=== PATIENT | female | born 1960 | race Caucasian/White ===

== ENCOUNTER → 2016-11-24 | Outpatient (CLI) | payer BC ==
[2016-11-24 10:09] LABS: Hemoglobin A1C 6.6 % (4.2-6.1)
== END | disposition home or self-care (01) ==
LOC: LABWHC1 07:07
PROVIDERS: ATTEND Family Medicine
DX: E11.9 Type 2 diabetes mellitus without complications (principal)
CPT/HCPCS: 36415; 83036

== ENCOUNTER 2016-12-14 22:39 | Emergency (ER) | payer BC ==
[2016-12-14 23:06] VITALS: BP 208/108; PULSE 98; RESP 20; TEMP 98.2
[2016-12-14] MEDS ORDERED: diphenhydrAMINE 50 MG CAP PO STA (23:15)
[2016-12-14] MEDS ORDERED: FAMOTIDINE 20 MG TAB PO STA (23:15)
--- NOTE | 2016-12-14 23:21 | ED ---
Allergic Reaction HPI - General Chief complaint: Allergic Reaction Stated complaint: Rash Time Seen by Provider: 12/14/16 23:10 Source: patient, RN notes reviewed Mode of arrival: ambulatory Limitations: no limitations - History of Present Illness Initial Comments: This is a 56-year-old female with a benign history who just finished Bactrim about 3 days ago for urinary tract infection started developing hives today. She had itching on her legs she had her hands now on her neck and she knows her lips are swollen. No new other thing that she can think of that she was in contact with was a hair product that she started using about a week ago. She denies any difficulty swallowing fevers chills nausea vomiting sweats or shortness of breath. MD Complaint: allergic reaction, hives - Related Data Home Medications Medication Instructions Recorded Confirmed metFORMIN HCL [Glucophage] 500 mg PO TID 05/17/16 12/14/16 Previous Rx's Medication Instructions Recorded Famotidine [Pepcid] 20 mg PO BID #14 tablet 12/14/16 predniSONE 20 mg PO BID #10 tab 12/14/16 Allergies Allergy/AdvReac Type Severity Reaction Status Date / Time No Known Allergies Allergy Verified 12/14/16 23:06 Review of Systems ROS Statement: Those systems with pertinent positive or pertinent negative responses have been documented in the HPI. ROS Other: All systems not noted in ROS Statement are negative. Past Medical History Past Medical History: Diabetes Mellitus Additional Past Medical History / Comment(s): Diabetes Type 2 diagnosed 11 years History of Any Multi-Drug Resistant Organisms: None Reported Past Surgical History: Section, Hysterectomy Past Anesthesia/Blood Transfusion Reactions: No Reported Reaction Past Psychological History: No Psychological Hx Reported Smoking Status: Never smoker Past Alcohol Use History: Occasional Additional Past Alcohol Use History / Comment(s): wine Past Drug Use History: None Reported General Exam - General Exam Comments Initial Comments: This is a well-developed well-nourished awake alert oriented x 3 female Limitations: no limitations General appearance: alert, in no apparent distress Head exam: Present: atraumatic, normocephalic, normal inspection Eye exam: Present: normal appearance, PERRL, EOMI. Absent: scleral icterus, conjunctival injection, periorbital swelling ENT exam: Present: other (Her upper lip is somewhat swollen with erythema as well as the perioral region. Is also some erythema seen on the side of the neck on the right.) Neck exam: Present: full ROM, other (No stridor JVD or bruits). Absent: tenderness Respiratory exam: Present: normal lung sounds bilaterally. Absent: respiratory distress, wheezes, rales, rhonchi, stridor Cardiovascular Exam: Present: regular rate, normal rhythm, normal heart sounds. Absent: systolic murmur, diastolic murmur, rubs, gallop, clicks Neurological exam: Present: alert, oriented X3, CN II-XII intact Psychiatric exam: Present: normal affect, normal mood Skin exam: Present: warm, dry, erythema, urticaria (To the extremities and face as well as neck) Course Vital Signs 12/14/16 23:03 Temperature 98.2 F Pulse Rate 98 Respiratory 20 Rate Blood Pressure 208/108 O2 Sat by Pulse 98 Oximetry Medical Decision Making - Medical Decision Making Patient is a diabetic and has noticed that her blood sugar was slightly elevated she will be sent home with a prescription for prednisone to use in case the H1 and H2 blockers did not help. He'll be placed on oral medication. Disposition Clinical Impression: Allergic reaction Disposition: HOME SELF-CARE Condition: Good Instructions: Allergies (ED) Prescriptions: Famotidine [Pepcid] 20 mg PO BID #14 tablet predniSONE 20 mg PO BID #10 tab
== END 2016-12-14 23:30 | disposition home or self-care (01) ==
LOC: EC 22:39
DX: T37.0X5A Adverse effect of sulfonamides, initial encounter (principal); E11.65 Type 2 diabetes mellitus with hyperglycemia; Z79.84 Long term (current) use of oral hypoglycemic drugs
CPT/HCPCS: 99282

== ENCOUNTER → 2018-02-15 | Outpatient (CLI) | payer BC ==
--- NOTE | 2018-02-15 11:30 | BD ---
EXAMINATION TYPE: Axial Bone Density DATE OF EXAM: 02/15/2018 COMPARISON: DEXA bone scan April 13, 2015 CLINICAL HISTORY: Disorder of bone per order. Height: 61 Weight: 141.6 FRAX RISK QUESTIONS: Alcohol (3 or more units per day): no Family History (Parent hip fracture): no Glucocorticoids (More than 3mos): no (Ex: prednisone, prednisolone, methylprednisolone, dexamethasone, and hydrocortisone). History of Fracture in Adulthood: no Secondary Osteoporosis: 1. Type 1 Diabetes: no 2. Hyperthyroidism: no 3. Menopause before 45: yes 4. Malnutrition: no 5. Chronic liver disease: no Rheumatoid Arthritis: no Current Tobacco Use: no RISK FACTORS HISTORY OF: Active: yes Diet low in dairy products/other sources of calcium: no Postmenopausal woman: hysterectomy age 32 Lost more than 2 inches in height since high school: no Frequent falls: no Poor Health: no MEDICATIONS: metformin Additional History: EXAM MEASUREMENTS: Bone mineral densitometry was performed using the [employer] System. Bone mineral density as measured about the Lumbar spine is: ----- L1-L4(G/cm2): 1.171 T Score Values are as follows: ----- L2: -0.6 ----- L3: 0.0 ----- L4: 0.2 ----- L1-L4: -0.1 Bone mineral density has: increased 3.0 % since study of: 04.13.2015 Bone mineral density about the R hip (g/cm2): 0.910 Bone mineral density about the L hip (g/cm2): 0.942 T Score values are as follows: -----R Neck: -0.9 -----L Neck: -0.7 -----R Total: 0.1 -----L Total: 0.0 Bone mineral density has: decreased -3.2 % since study of: 04.13.2015 IMPRESSION: Normal (Values between +1 and -1 indicate normal bone mass). Consider repeating this study in 5 year s or sooner if there is some new clinical indication. NOTE: T-SCORE=SD OF THE YOUNG ADULT MEAN.
--- NOTE | 2018-02-16 13:39 | MM ---
Reason for exam: screening (asymptomatic). Last mammogram was performed 2 years ago. History: Patient is postmenopausal. Benign US breast aspiration single RT of the right breast, May 22, 2015. Took estrogen for 15 years 7 months beginning at age 32. Physical Findings: A clinical breast exam by your physician is recommended on an annual basis and results should be correlated with mammographic findings. MG 3D Screening Mammo W/Cad Bilateral CC and MLO view(s) were taken. Prior study comparison: February 04, 2016, right breast MG 3d diag mammo w/cad RT. May 22, 2015, right breast MG diagnostic mammo RT wo CAD. There are scattered fibroglandular densities. Finding: There is a new group of lower inner quadrant calcifications in the left breast with associated asymmetry on MLO at middle depth. No suspicious abnormality on the right breast. Right biopsy marker noted. ASSESSMENT: Incomplete: need additional imaging evaluation, BI-RAD 0 RECOMMENDATION: Special view mammogram of the left breast. [facility] will attempt to contact patient to return for supplemental views.
== END | disposition home or self-care (01) ==
LOC: RADMAMWWP 07:40
PROVIDERS: ATTEND Obstetrics & Gynecology
DX: Z12.31 Encounter for screening mammogram for malignant neoplasm of breast (principal); M85.80 Other specified disorders of bone density and structure, unspecified site
CPT/HCPCS: 77063; 77067; 77080

== ENCOUNTER → 2018-02-21 | Outpatient (CLI) | payer BC ==
--- NOTE | 2018-02-21 11:25 | MM ---
Reason for exam: additional evaluation requested from abnormal screening. Last mammogram was performed less than 1 month ago. History: Patient is postmenopausal. Benign US breast aspiration single RT of the right breast, May 22, 2015. Took estrogen for 15 years 7 months beginning at age 32. Physical Findings: Nurse did not find any significant physical abnormalities on exam. MG 3D Work Up W/Cad LT CC with magnification, LM with magnification, and LM view(s) were taken of the left breast. Prior study comparison: February 15, 2018, bilateral MG 3d screening mammo w/cad. February 04, 2016, right breast MG 3d diag mammo w/cad RT. There are scattered fibroglandular densities. Loosely grouped round and punctate calcifications central 9 o'clock left breast are slightly increased. Short interval follow up recommended. These results were verbally communicated with the patient and result sheet given to the patient on 02/21/18. ASSESSMENT: Probably benign, BI-RAD 3 RECOMMENDATION: Follow-up diagnostic mammogram of the left breast in 6 months.
== END | disposition home or self-care (01) ==
LOC: RADMAMWWP 09:38
PROVIDERS: ATTEND Obstetrics & Gynecology
DX: R92.8 Other abnormal and inconclusive findings on diagnostic imaging of breast (principal)
CPT/HCPCS: 77061; 77065

== ENCOUNTER → 2021-08-25 | Outpatient (CLI) | payer BC ==
--- NOTE | 2021-08-25 17:59 | BD ---
EXAMINATION TYPE: Axial Bone Density DATE OF EXAM: 08/25/2021 COMPARISON: 02/15/2018 CLINICAL HISTORY: Postmenopausal screening Height: 61 IN Weight: 149 LBS FRAX RISK QUESTIONS: Secondary Osteoporosis: 3. Menopause before 45: TOTAL HYST AGE 28 RISK FACTORS HISTORY OF: Active: YES Postmenopausal woman: TOTAL HYST AGE 28 Take estrogen and/or progesterone medications: NOT NOW How lon YEARS MEDICATIONS: Additional Medications: CALCIUM, METFORMIN, WOMAN'S VIT, CRANBERRY EXAM MEASUREMENTS: Bone mineral densitometry was performed using the [employer] System. Bone mineral density as measured about the Lumbar spine is: ----- L1-L4(G/cm2): 1.110 T Score Values are as follows: ----- L2: -1.1 ----- L3: -0.1 ----- L4: -0.1 ----- L1-L4: -0.6 Bone mineral density has: Decreased -2.9% since study of: 02/15/2018 Bone mineral density about the R hip (g/cm2): 0.855 Bone mineral density about the L hip (g/cm2): 0.862 T Score values are as follows: -----R Neck: -1.3 -----L Neck: -1.3 -----R Total: -0.1 -----L Total: -0.1 Bone mineral density has: Decreased -2.1% since study of: 02/15/2018 IMPRESSION: Osteopenia (T Score between -2.5 and -1). There is slightly increased risk of fracture and the patient may be considered for treatment. Re-Screen 2-5 years. NOTE: T-SCORE=SD OF THE YOUNG ADULT MEAN.
--- NOTE | 2021-08-26 12:12 | MM ---
Reason for exam: screening (asymptomatic). Last mammogram was performed 3 years and 6 months ago. History: Patient is postmenopausal. Benign US breast aspiration single RT of the right breast, May 22, 2015. Took estrogen for 15 years 7 months beginning at age 32. Physical Findings: A clinical breast exam by your physician is recommended on an annual basis and results should be correlated with mammographic findings. MG Screening Mammo w CAD Bilateral CC, MLO, and XCCL view(s) were taken. Prior study comparison: February 21, 2018, left breast MG 3d work up w/cad LT. February 15, 2018, bilateral MG 3d screening mammo w/cad. Finding: There is a typically benign 6 mm high density, oval mass located 13 cm from the nipple in the upper outer quadrant of the right breast. Previous mammotome biopsy in the right breast. ASSESSMENT: Incomplete: need additional imaging evaluation, BI-RAD 0 RECOMMENDATION: Special view mammogram of the right breast. If lesion persists on supplemental views, image directed ultrasound is recommended. [facility] will attempt to contact patient to return for supplemental views and ultrasound if indicated.
== END ==
LOC: RADMAMWWP 07:26
PROVIDERS: ATTEND Obstetrics & Gynecology
DX: Z12.31 Encounter for screening mammogram for malignant neoplasm of breast (principal); N63.11 Unspecified lump in the right breast, upper outer quadrant; M85.89 Other specified disorders of bone density and structure, multiple sites
CPT/HCPCS: 77067; 77080

== ENCOUNTER → 2021-10-13 | Outpatient (CLI) | payer BC ==
--- NOTE | 2021-10-13 11:06 | MM ---
Reason for exam: additional evaluation requested from abnormal screening. Last mammogram was performed 2 months ago. History: Patient is postmenopausal. Benign US breast aspiration single RT of the right breast, May 22, 2015. Took estrogen for 15 years 7 months beginning at age 32. Physical Findings: Nurse did not find any significant physical abnormalities on exam. MG Work Up Mamm w CAD RT Spot compression CC and LM view(s) were taken of the right breast. Prior study comparison: August 25, 2021, bilateral MG screening mammo w CAD. February 21, 2018, left breast MG 3d work up w/cad LT. There are scattered fibroglandular densities. Previous mammotome biopsy in the right breast. Mildly lobulated 8mm 9-10 o'clock zone C mass persists, probable low axillary tail lymph node. These results were verbally communicated with the patient and result sheet given to the patient on 10/13/21. ASSESSMENT: Incomplete: need additional imaging evaluation, BI-RAD 0 RECOMMENDATION: Ultrasound of the right breast.
--- NOTE | 2021-10-13 11:09 | USB ---
Reason for exam: additional evaluation requested from abnormal screening. History: Patient is postmenopausal. Benign US breast aspiration single RT of the right breast, May 22, 2015. Took estrogen for 15 years 7 months beginning at age 32. US Breast Workup Limited RT Right limited breast ultrasound including focal area of concern, retroareolar and axilla demonstrates a 8 x 5 x 8mm lobular, questionable lymph node versus deep cyst at 10 o'clock, 3 month follow up recommended and a 6 x 5 x 5mm oval, hypoechoic lesion at 11 o'clock, poorly defined, difficult to find abut stands out once identified, 3 month follow up recommended. These results were verbally communicated with the patient and result sheet given to the patient on 10/13/21. ASSESSMENT: Probably benign, BI-RAD 3 RECOMMENDATION: Follow-up diagnostic mammogram and ultrasound of the right breast in 3 months.
== END | disposition home or self-care (01) ==
LOC: RADMAMWWP 08:56
PROVIDERS: ATTEND Obstetrics & Gynecology
DX: R92.8 Other abnormal and inconclusive findings on diagnostic imaging of breast (principal); Z78.0 Asymptomatic menopausal state
CPT/HCPCS: 77065

== ENCOUNTER → 2022-01-18 | Outpatient (CLI) | payer BC ==
--- NOTE | 2022-01-18 14:06 | MM ---
Reason for exam: follow-up at short interval from prior study. Last mammogram was performed 3 months ago. History: Patient is postmenopausal. Benign US breast aspiration single RT of the right breast, May 22, 2015. Took estrogen for 15 years 7 months beginning at age 32. Physical Findings: A clinical breast exam by your physician is recommended on an annual basis and results should be correlated with mammographic findings. MG 3D Diag Mammo W/Cad RT CC and MLO view(s) were taken of the right breast. Prior study comparison: October 13, 2021, right breast MG work up mamm w CAD RT. August 25, 2021, bilateral MG screening mammo w CAD. February 15, 2018, bilateral MG 3d screening mammo w/cad. There are scattered fibroglandular densities. Previous mammotome biopsy in the right breast. 1cm oval nodule versus 8mm previously. Suspect a reactive node. Results were given to the patient verbally at the time of the exam. ASSESSMENT: Incomplete: need additional imaging evaluation, BI-RAD 0 RECOMMENDATION: Ultrasound of the right breast.
--- NOTE | 2022-01-18 14:09 | USB ---
Reason for exam: additional evaluation requested from abnormal screening. History: Patient is postmenopausal. Benign US breast aspiration single RT of the right breast, May 22, 2015. Took estrogen for 15 years 7 months beginning at age 32. Physical Findings: A clinical breast exam by your physician is recommended on an annual basis and results should be correlated with mammographic findings. US Breast Limited RT Right limited breast ultrasound including focal area of concern, retroareolar and axilla demonstrates a 0.6 x 0.6 x 0.7cm benign cyst at 10 o'clock and a 0.5 x 0.4 x 0.4cm unchanged hypoechoic lesion at 11 o'clock, additional follow up recommended. Scanned 9-12 o'clock. Results were given to the patient verbally at the time of the exam. ASSESSMENT: Probably benign, BI-RAD 3 RECOMMENDATION: Follow-up diagnostic mammogram of both breasts in 9 months. Ultrasound of the right breast in 9 months.
== END | disposition home or self-care (01) ==
LOC: RADMAMWWP 12:59
PROVIDERS: ATTEND Obstetrics & Gynecology
DX: R92.8 Other abnormal and inconclusive findings on diagnostic imaging of breast (principal); N60.01 Solitary cyst of right breast; Z78.0 Asymptomatic menopausal state
CPT/HCPCS: 77061; 77065

== ENCOUNTER → 2023-01-11 | Outpatient (CLI) | payer BC ==
--- NOTE | 2023-01-11 08:03 | US ---
EXAMINATION TYPE: US abdomen complete DATE OF EXAM: 01/11/2023 COMPARISON: NONE CLINICAL HISTORY: R1030 LOW ABD PAIN. Lower abdominal pain on the left side since 12/23/22. TECHNIQUE: Multiple sonographic images of the abdomen are obtained. FINDINGS: EXAM MEASUREMENTS: Liver Length: 15.9 cm Gallbladder Wall: 0.22 cm CBD: 0.45 cm Spleen: 9.0 cm Right Kidney: 11.6 x 5.2 x 4.5 cm Left Kidney: 10.8 x 5.1 x 4.5 cm MFT NOTES: Exam is limited due to overlying bowel gas. Pancreas: Not well visualized. Liver: Appears very coarse in echotexture with increased echogenicity. Hypoechoic, indistinct area se en adjacent to the gallbladder: 1.6 x 1.9 x 0.5 cm. Gallbladder: Folds seen. Evidence for sonographic Lentz's sign: No CBD: Portions seen appear wnl Spleen: Appears wnl Right Kidney: Appears heterogeneous. Nonsimple cyst seen mid pole: 1.4 x 2.4 x 1.6 cm. Left Kidney: Appears heterogeneous. Possible solid lesion seen upper pole: 1.9 x 2.2 x 0.6 cm. Upper IVC: wnl Abd Aorta: Very limited visibility. Proximal segment appears ectatic. Distal segment and iliacs were obscured. Portions of mid aorta were obscured. Visualized abdominal aorta shows no aneurysm. IVC is seen near the hepatic dome. Visualized pancreas appears within normal limits. Visualized liver is heterogeneously hyperechoic. Evaluation for focal m asses suboptimal due to the heterogeneity. No biliary dilatation. No mobile shadowing gallstones. Cor tical thinning in both kidneys. No hydronephrosis. Cannot exclude nonsimple cysts in both kidneys. IMPRESSION: 1. No acute findings are evident. 2. Heterogeneous hyperechoic appearance of liver consistent with fatty infiltrative hepatocellular di sease. Correlate clinically and with liver lab values. 3. Possible nonsimple cysts in both kidneys. Advise renal protocol contrast-enhanced CT or MRI to fur ther evaluate.
== END | disposition home or self-care (01) ==
LOC: RADUSWWP 06:50
PROVIDERS: ATTEND Family Medicine
DX: K76.89 Other specified diseases of liver (principal); R10.30 Lower abdominal pain, unspecified
CPT/HCPCS: 76700

== ENCOUNTER → 2023-01-19 | Outpatient (CLI) | payer BC ==
--- NOTE | 2023-01-19 14:45 | MM ---
Reason for Exam: Follow-up at short interval from prior study. Last mammogram was performed 1 year(s) and 5 month(s) ago. Patient History: Menarche at age 17. First Full-Term at age 25. Left ovary removed at age 32. Right ovary removed at age 32. Hysterectomy at age 32. Postmenopausal. Estrogen, starting at age 32 for 15 years, 7 months. 05/22/2015, Benign Cyst Aspiration on the right side. Risk Values: Marcia 5 year model risk: 1.5%. NCI Lifetime model risk: 7.0%. Tissue Density: There are scattered fibroglandular densities. Findings: Analyzed By CAD. Pattern appears stable. The nodular density in the upper-outer aspect right breast is significantly obtained asymmetric density remaining. No suspicious spiculated or lobular mass is evident. Overall Assessment: Incomplete: need additional imaging evaluation, BI-RAD 0 Management: Diagnostic Breast Ultrasound of the right breast. A negative mammogram report should not preclude additional follow up of suspicious palpable abnormalities. Patient should continue monthly self breast exam. A clinical breast exam by your physician is recommended on an annual basis and results should be correlated with mammographic findings. Electronically signed and approved by: Neymar Monzon D.O. Radiologis
--- NOTE | 2023-01-20 07:09 | USB ---
Reason for Exam: Follow-up at short interval from prior study. Patient History: Menarche at age 17. First Full-Term at age 25. Left ovary removed at age 32. Right ovary removed at age 32. Hysterectomy at age 32. Postmenopausal. Estrogen, starting at age 32 for 15 years, 7 months. 05/22/2015, Benign Cyst Aspiration on the right side. Risk Values: Marcia 5 year model risk: 1.5%. NCI Lifetime model risk: 7.0%. Technique: Method: Targeted. Prior Study Comparison: 08/25/2021 Bilateral Screening Mammogram, [facility]. 10/13/2021 Right Diagnostic Mammogram, [facility]. 01/18/2022 Right Diagnostic Mammogram, [facility]. Findings: The upper outer quadrant of the right breast, the axilla of the right breast and the retroareolar of the right breast were scanned. No solid or cystic masses are identified. Return to screening mammogram on schedule. Overall Assessment: Negative, BI-RAD 1 Management: Screening Mammogram of both breasts in 6 months. A clinical breast exam by your physician is recommended on an annual basis and results should be correlated with mammographic findings. This exam should not preclude additional follow-up of suspicious palpable abnormalities. Results were given to the patient verbally at the time of exam. Electronically signed and approved by: Neymar Monzon D.O. Radiologis
== END | disposition home or self-care (01) ==
LOC: RADMAMWWP 14:15
PROVIDERS: ATTEND Obstetrics & Gynecology
DX: R92.8 Other abnormal and inconclusive findings on diagnostic imaging of breast (principal); Z78.0 Asymptomatic menopausal state
CPT/HCPCS: 77062; 77066

== ENCOUNTER → 2023-01-23 | Outpatient (CLI) | payer BC ==
[2023-01-23 15:29] LABS: African American GFR (CKD) >90 (>60 ml/min/1.73 sqM); Blood Urea Nitrogen 11 mg/dL (7-17); Non-African American GFR(CKD) >90 (>60 ml/min/1.73 sqM)
--- NOTE | 2023-01-23 17:57 | CT ---
EXAMINATION TYPE: CT abdomen wo/w con CT DLP: 2659 mGycm, Automated exposure control for dose reduction was used. DATE OF EXAM: 01/23/2023 5:06 PM COMPARISON: Abdominal ultrasound 01/11/2023 CLINICAL INDICATION:Female, 62 years old with history of R31.0 gross hematuria; Left side flank pain. Cysts found on prior US. TECHNIQUE: Standard CT of the abdomen before and after the administration of 100 cc of Isovue 300 i ntravenously. Oral contrast demonstrated. Coronal and sagittal reformats were performed. FINDINGS: LOWER CHEST: Unremarkable ABDOMEN LIVER: Diffusely hypoattenuating parenchyma. No focal lesion. GALLBLADDER AND BILE DUCTS: Unremarkable. PANCREAS: Unremarkable. SPLEEN: Unremarkable. ADRENAL GLANDS: Unremarkable. KIDNEYS AND URETERS: No evidence of hydronephrosis or renal calculus. The kidneys enhance symmetrical ly. Subcentimeter hypodense cortical focus within the inferior pole the right kidney favored to repre sent a cyst. Contrast is demonstrated within both collecting system on the delayed phase. No definiti ve enhancing lesions corresponding to ultrasound findings. STOMACH AND BOWEL: Stomach and duodenum are unremarkable. No focal wall thickening or surrounding inf lammatory changes Enteric contrast reaches the distal small bowel. No evidence of bowel obstruction. PERITONEUM: No evidence of pneumoperitoneum or free fluid. PELVIS BLADDER: Unremarkable REPRODUCTIVE: The uterus is surgically absent. ABDOMEN & PELVIS VASCULATURE: Mild atherosclerotic calcifications are present throughout the abdominal aorta and its b ranches. No evidence of aortic aneurysm. Multiple pelvic fluid levels. MUSCULOSKELETAL: No acute osseous abnormalities. No aggressive osseous lesion. Mild multilevel degene rative disease. Mild retrolisthesis of L1 on L2 and L5 on S1. LYMPH NODES: No gross evidence for lymphadenopathy. SOFT TISSUE/ABDOMINAL WALL: Unremarkable IMPRESSION: 1. No acute abdominal process. No enhancing lesion corresponding to abdominal ultrasound renal lesio ns. Follow-up ultrasound exam in 6 months is recommended. Next and 2. Hepatic steatosis.
== END | disposition home or self-care (01) ==
LOC: RADCTMAIN 14:36
PROVIDERS: ATTEND Family Medicine
DX: N28.1 Cyst of kidney, acquired (principal); K76.0 Fatty (change of) liver, not elsewhere classified
CPT/HCPCS: 82565; 84520; 74170; 36415; Q9967

== ENCOUNTER → 2024-03-12 | Outpatient (CLI) | payer BC ==
--- NOTE | 2024-03-13 14:14 | MM ---
Reason for Exam: Screening (asymptomatic). Last mammogram was performed 1 year(s) and 2 month(s) ago. Patient History: Menarche at age 17. First Full-Term at age 25. Left ovary removed at age 32. Right ovary removed at age 32. Hysterectomy at age 32. Postmenopausal. Estrogen, starting at age 32 for 15 years, 7 months. 05/22/2015, Benign Cyst Aspiration on the right side. Risk Values: Marcia 5 year model risk: 1.6%. NCI Lifetime model risk: 6.8%. Prior Study Comparison: 10/13/2021 Right Diagnostic Mammogram, [facility]. 01/18/2022 Right Diagnostic Mammogram, [facility]. 01/19/2023 Bilateral MG 3D diag mammo w/cad [facility], [facility]. Tissue Density: There are scattered areas of fibroglandular density. Findings: Analyzed By CAD. Right breast biopsy clip. Right breast: There is no suspicious group of microcalcifications or new suspicious mass. Benign-appearing calcifications right breast. Left breast: There is no suspicious group of microcalcifications or new suspicious mass. Benign-appearing calcifications left breast. Overall Assessment: Benign, BI-RAD 2 Management: Screening Mammogram of both breasts in [address] [facility] will attempt to contact patient to return for supplemental views and ultrasound if indicated. Patient should continue monthly self-breast exams. A clinical breast exam by your physician is recommended on an annual basis. This exam should not preclude additional follow-up of suspicious palpable abnormalities. Note on Marcia scores and lifetime risk: 1. A Marcia score greater than 3% is considered moderate risk. If this is the case, consider specialist referral to assess eligibility for a risk reducing agent. 2. If overall lifetime risk for the development of breast cancer is 20% or higher, the patient may qualify for future screening with alternating mammogram and breast MRI. Electronically signed and approved by: Maximo Curry DO
== END | disposition home or self-care (01) ==
LOC: RADMAMWWP 07:21
PROVIDERS: ATTEND Obstetrics & Gynecology
DX: Z12.31 Encounter for screening mammogram for malignant neoplasm of breast (principal); Z78.0 Asymptomatic menopausal state
CPT/HCPCS: 77063; 77067

== ENCOUNTER 2025-04-17 06:36 | Day surgery (SDC) | payer BC ==
[2025-04-17] MEDS ORDERED: LIDOCAINE 1% (10MG/ML) FOR IV START INTRADERMA PRN (06:41)
[2025-04-17 07:00] VITALS: TEMP 98.2
[2025-04-17 07:09] LABS: Glucose,Whole Blood 88 mg/dL (70-110)
[2025-04-17] MEDS: LACTATED RINGERS 1,000 ML IV SCH (07:10)
[2025-04-17] MEDS: IV FLUID CONTINUATION 1,000 ML IV ONE (07:13)
[2025-04-17] MEDS ORDERED: PROPOFOL 10 MG/ML 20 ML VIAL IV ONE (07:30)
--- NOTE | 2025-04-17 07:36 | P.GSHP ---
History of Present Illness H&P Date: 04/17/25 Chief Complaint: Screening colonoscopy This is a 64-year-old female presents today for screening colonoscopy. Patient denies any significant GI complaints. Her last colonoscopy over 10 years ago. Past Medical History Past Medical History: Diabetes Mellitus, Hyperlipidemia Additional Past Medical History / Comment(s): Diabetes Type 2 History of Any Multi-Drug Resistant Organisms: None Reported Past Surgical History: Section, Hysterectomy Additional Past Surgical History / Comment(s): colonoscopy, exp. laparoscopy Past Anesthesia/Blood Transfusion Reactions: No Reported Reaction Smoking Status: Never smoker Medications and Allergies Home Medications Medication Instructions Recorded Confirmed Type metFORMIN HCL [Glucophage] 1,000 mg PO BID 05/17/16 04/17/25 History Atorvastatin [Lipitor] 10 mg PO HS 04/16/25 04/17/25 History Empagliflozin [Jardiance] 10 mg PO DAILY 04/16/25 04/17/25 History Allergies Allergy/AdvReac Type Severity Reaction Status Date / Time No Known Allergies Allergy Verified 04/17/25 06:56 Surgical - Exam Vital Signs Resp BP Pulse Ox 16 164/70 99 04/17/25 06:58 04/17/25 06:58 04/17/25 06:58 - General well developed, well nourished, no distress - Eyes PERRL - ENT normal pinna - Neck no masses - Respiratory normal expansion - Cardiovascular Rhythm: regular - Abdomen Abdomen: soft, non tender Assessment and Plan Assessment: Will perform screening colonoscopy.
--- NOTE | 2025-04-17 07:57 | P.OP ---
Date of Procedure: 04/17/25 Preoperative Diagnosis: Screening colonoscopy Postoperative Diagnosis: Diverticulosis Procedure(s) Performed: Colonoscopy Anesthesia: MAC Surgeon: Tres Ortez Pathology: none sent Condition: stable Disposition: PACU Description of Procedure: The patient was placed on the endoscopy table in the lateral position. She received IV sedation. Digital rectal exam was performed. This revealed no abnormalities. The flexible colonoscope was then placed patient Anaspaz throughout the entire colon. Ileocecal valve was visualized. The cecum, ascending and transverse colon appeared normal. The descending and sigmoid colon had moderate diverticular changes. The scope was Ruback the rectum this appeared normal. Scope withdrawn to the patient.
[2025-04-17 08:23] VITALS: BP 115/74; PULSE 51; RESP 18
== END 2025-04-17 08:28 | disposition home or self-care (01) ==
LOC: ORWHC2ENDO 06:36
PROVIDERS: ATTEND Surgery
DX: Z12.11 Encounter for screening for malignant neoplasm of colon (principal); K57.30 Diverticulosis of large intestine without perforation or abscess without bleeding; E11.9 Type 2 diabetes mellitus without complications; E78.5 Hyperlipidemia, unspecified; Z79.84 Long term (current) use of oral hypoglycemic drugs; Z79.899 Other long term (current) drug therapy; Z90.710 Acquired absence of both cervix and uterus
CPT/HCPCS: 45378; J2704